=== PATIENT | female | born 1995 | race Two or more races ===

== ENCOUNTER 2016-10-24 13:49 | Emergency (ER) | payer MEDICAID, OTHER ==
[~2016-10-24] VITALS: Ht 160 cm; Wt 54.4 kg
[~2016-10-24 13:49] MED LIST: PREN-96 PO
[2016-10-24 13:57] VITALS: BP 140/90
[2016-10-24] MEDS ORDERED: KETOROLAC TROMETH 30 MG/ML 1ML VIAL IV ONE (14:00)
[2016-10-24] MEDS ORDERED: CARISOPRODOL 350 MG TAB PO ONE (14:15)
== END 2016-10-24 15:44 | disposition home or self-care (01) ==
LOC: EDBD 13:49 → ER 13:49
DX: S33.5XXA Sprain of ligaments of lumbar spine, initial encounter (principal); M54.10 Radiculopathy, site unspecified; X58.XXXA Exposure to other specified factors, initial encounter; Y93.89 Activity, other specified; Y92.89 Other specified places as the place of occurrence of the external cause; Y99.8 Other external cause status
CPT/HCPCS: 72131; 96374; 99284; J1885

== ENCOUNTER 2017-06-14 16:07 | Emergency (ER) | payer MEDICAID, OTHER ==
[~2017-06-14] VITALS: Ht 149.9 cm; Wt 56.7 kg
[2017-06-14 16:16] VITALS: BP 135/78
== END 2017-06-14 17:57 | disposition home or self-care (01) ==
LOC: ER 16:08
DX: R11.2 Nausea with vomiting, unspecified (principal)

== ENCOUNTER 2020-07-14 09:26 | Observation (INO) | payer MEDICAID | END 2020-07-14 12:28 | disposition home or self-care (01) | LOC: LDRP 09:26 | PROVIDERS: ADMIT Obstetrics & Gynecology; ATTEND Obstetrics & Gynecology | DX: O26.853 Spotting complicating pregnancy, third trimester (principal); O60.03 Preterm labor without delivery, third trimester; O62.9 Abnormality of forces of labor, unspecified; Z3A.32 32 weeks gestation of pregnancy | CPT/HCPCS: 59025; 76815; 81002; G0378 ==

== ENCOUNTER 2020-07-16 14:05 | Observation (INO) | payer MEDICAID ==
[~2020-07-16] VITALS: Ht 149.9 cm; Wt 76.2 kg
[2020-07-16] MEDS ORDERED: NIF10C GT ×2 (14:40)
== END 2020-07-16 15:16 | disposition home or self-care (01) ==
LOC: LDRP 14:05
PROVIDERS: ADMIT Specialist; ATTEND Specialist
DX: O60.03 Preterm labor without delivery, third trimester (principal); O62.9 Abnormality of forces of labor, unspecified; Z3A.33 33 weeks gestation of pregnancy
CPT/HCPCS: 59025; 81002; G0378

== ENCOUNTER 2020-07-21 09:01 | Observation (INO) | payer MEDICAID ==
[~2020-07-21] VITALS: Ht 149.9 cm; Wt 77.6 kg
[~2020-07-21 09:01] MED LIST changes: +NIF10C GT
[2020-07-21] MEDS ORDERED: TERBUTALINE SULFATE 1 MG/ML 1ML VIAL SC SCH (10:15)
== END 2020-07-21 11:18 | disposition home or self-care (01) ==
LOC: LDRP 09:01
PROVIDERS: ADMIT Obstetrics & Gynecology; ATTEND Obstetrics & Gynecology
DX: O60.03 Preterm labor without delivery, third trimester (principal); O62.9 Abnormality of forces of labor, unspecified; Z3A.33 33 weeks gestation of pregnancy
CPT/HCPCS: 59025; 81002; 96372; G0378; J3105

== ENCOUNTER 2020-07-28 08:55 | Observation (INO) | payer MEDICAID ==
[~2020-07-28] VITALS: Ht 149.9 cm; Wt 78.5 kg
== END 2020-07-28 10:46 | disposition home or self-care (01) ==
LOC: LDRP 08:55
PROVIDERS: ADMIT Obstetrics & Gynecology; ATTEND Obstetrics & Gynecology
DX: O60.03 Preterm labor without delivery, third trimester (principal); O62.9 Abnormality of forces of labor, unspecified; Z3A.34 34 weeks gestation of pregnancy
CPT/HCPCS: 59025; 76818; 81002; G0378

== ENCOUNTER 2020-08-02 18:47 | Observation (INO) | payer MEDICAID ==
[2020-08-02] MEDS ORDERED: BETAMETHASONE ACET (6MG/ML) 5ML VIAL IM ONE (19:45)
[2020-08-02] MEDS ORDERED: LACTATED RINGER'S 1,000 ML IV ONE (19:45)
[2020-08-02] MEDS ORDERED: LACTATED RINGER'S 1,000 ML IV SCH (19:45)
[2020-08-02] MEDS ORDERED: NIFEdipine 10 MG CAP PO ONE (20:00)
[2020-08-02] MEDS: TERBUTALINE SULFATE 1 MG/ML 1ML VIAL SC SCH ×2 (20:39→21:04)
== END 2020-08-02 23:55 | disposition home or self-care (01) ==
LOC: LDRP 18:47
PROVIDERS: ADMIT Obstetrics & Gynecology; ATTEND Obstetrics & Gynecology
DX: O62.9 Abnormality of forces of labor, unspecified (principal); Z3A.35 35 weeks gestation of pregnancy
CPT/HCPCS: 59025; 76818; 81002; 96360; 96361; 96372; G0378; J0702; J3105

== ENCOUNTER 2020-08-03 19:47 | Observation (INO) | payer MEDICAID ==
[2020-08-03] MEDS ORDERED: BETAMETHASONE ACET (6MG/ML) 5ML VIAL IM SCH (21:00)
[2020-08-04] MEDS ORDERED: BETAMETHASONE ACET (6MG/ML) 5ML VIAL IM SCH (10:00)
== END 2020-08-03 21:45 | disposition home or self-care (01) ==
LOC: LDRP 19:47
PROVIDERS: ADMIT Specialist; ATTEND Specialist
DX: O62.9 Abnormality of forces of labor, unspecified (principal); O99.353 Diseases of the nervous system complicating pregnancy, third trimester; G43.909 Migraine, unspecified, not intractable, without status migrainosus; Z3A.35 35 weeks gestation of pregnancy
CPT/HCPCS: 59025; 81002; 96372; G0378; J0702

== ENCOUNTER 2020-08-08 22:53 | Observation (INO) | payer MEDICAID ==
[2020-08-09] MEDS ORDERED: NIFEdipine 10 MG CAP PO ONE (00:15)
== END 2020-08-09 00:25 | disposition home or self-care (01) ==
LOC: LDRP 22:53
PROVIDERS: ADMIT Obstetrics & Gynecology; ATTEND Obstetrics & Gynecology
DX: O62.9 Abnormality of forces of labor, unspecified (principal); O26.893 Other specified pregnancy related conditions, third trimester; R19.7 Diarrhea, unspecified; Z3A.36 36 weeks gestation of pregnancy; Z79.899 Other long term (current) drug therapy
CPT/HCPCS: 59025; 81002; G0378

== ENCOUNTER 2020-08-11 09:15 | Observation (INO) | payer MEDICAID ==
[~2020-08-11] VITALS: Ht 152.4 cm; Wt 79.4 kg
[2020-08-11] MEDS ORDERED: LACTATED RINGER'S 1,000 ML IV ONE (10:35)
[2020-08-11] MEDS ORDERED: NIFEdipine 10 MG CAP PO ONE (11:00)
== END 2020-08-11 12:15 | disposition home or self-care (01) ==
LOC: LDRP 09:15
PROVIDERS: ADMIT Specialist; ATTEND Specialist
DX: O60.03 Preterm labor without delivery, third trimester (principal); Z3A.36 36 weeks gestation of pregnancy
CPT/HCPCS: 59025; 76818; 81002; 96360; G0378

== ENCOUNTER 2020-08-27 09:00 | Observation (INO) | payer MEDICAID ==
[~2020-08-27 09:00] MED LIST changes: -NIF10C GT
== END 2020-08-27 12:03 | disposition home or self-care (01) ==
LOC: LDRP 09:00
PROVIDERS: ADMIT Specialist; ATTEND Specialist
DX: O62.9 Abnormality of forces of labor, unspecified (principal); Z3A.39 39 weeks gestation of pregnancy
CPT/HCPCS: 59025; 81002; G0378

== ENCOUNTER → 2021-09-26 | Outpatient (CLI) | payer MEDICAID | END | disposition home or self-care (01) | LOC: LAB 13:39 | PROVIDERS: ATTEND Obstetrics & Gynecology Obstetrics | DX: Z34.80 Encounter for supervision of other normal pregnancy, unspecified trimester (principal) | CPT/HCPCS: 36415; 84144; 84702 ==

== ENCOUNTER 2022-01-20 09:47 | Observation (INO) | payer MEDICAID ==
[2022-01-20] MEDS ORDERED: TERBUTALINE SULFATE 1 MG/ML 1ML VIAL SC SCH (11:00)
[2022-01-20] MEDS ORDERED: LACTATED RINGER'S 1,000 ML IV ONE (11:30)
== END 2022-01-20 11:46 | disposition home or self-care (01) ==
LOC: LDRP 09:47 → UNDOADMOB 09:47 → LDRP 11:02 → UNDODISOB 11:46
PROVIDERS: ADMIT Obstetrics & Gynecology; ATTEND Obstetrics & Gynecology
DX: O60.02 Preterm labor without delivery, second trimester (principal); Z3A.25 25 weeks gestation of pregnancy
CPT/HCPCS: 59025; 76805; 81002; 96360; 96361; G0378

== ENCOUNTER 2022-02-24 10:58 | Observation (INO) | payer MEDICAID ==
[~2022-02-24] VITALS: Ht 147.3 cm; Wt 68.9 kg
[2022-02-24] MEDS: TERBUTALINE SULFATE 1 MG/ML 1ML VIAL SC SCH ×2 (12:10→12:54)
== END 2022-02-24 13:31 | disposition home or self-care (01) ==
LOC: UNDOADMOB 10:58 → LDRP 10:58
PROVIDERS: ADMIT Obstetrics & Gynecology; ATTEND Obstetrics & Gynecology
DX: O60.03 Preterm labor without delivery, third trimester (principal); O62.9 Abnormality of forces of labor, unspecified; O26.893 Other specified pregnancy related conditions, third trimester; H53.8 Other visual disturbances; Z3A.30 30 weeks gestation of pregnancy
CPT/HCPCS: 59025; 76815; 81002; 94760; 96372; G0378; J3105

== ENCOUNTER 2022-04-11 12:59 | Observation (INO) | payer MEDICAID | END 2022-04-11 15:44 | disposition home or self-care (01) | LOC: UNDOADMOB 12:59 → LDRP 12:59 | PROVIDERS: ADMIT Obstetrics & Gynecology; ATTEND Obstetrics & Gynecology | DX: O60.03 Preterm labor without delivery, third trimester (principal); O62.9 Abnormality of forces of labor, unspecified; Z3A.37 37 weeks gestation of pregnancy | CPT/HCPCS: 59025; 76818; 81002; 84112; G0378; Q0114 ==

== ENCOUNTER 2022-04-18 03:52 | Observation (INO) | payer MEDICAID ==
[~2022-04-18] VITALS: Ht 149.9 cm; Wt 74.4 kg
== END 2022-04-18 04:46 | disposition home or self-care (01) ==
LOC: LDRP 03:52
PROVIDERS: ADMIT Obstetrics & Gynecology; ATTEND Obstetrics & Gynecology
DX: O62.9 Abnormality of forces of labor, unspecified (principal); Z3A.38 38 weeks gestation of pregnancy
CPT/HCPCS: 59025; 81002; 94760; G0378

== ENCOUNTER 2022-04-24 16:22 | Inpatient (IN) | payer MEDICAID ==
[~2022-04-24] VITALS: Ht 149.9 cm; Wt 75.3 kg
[2022-04-24] MEDS ORDERED: LIDOCAINE 2%HCL (LOCAL ANESTH.) INJ 20ML MDV IJ PRN (17:15)
[2022-04-24] MEDS ORDERED: BUTORPHANOL TARTRATE 2 MG/1 ML VIAL IV PRN ×2 (17:15)
[2022-04-24] MEDS ORDERED: PHISODERM TOP SOLN 240ML BTL TOP PRN (17:15)
[2022-04-24] MEDS ORDERED: PROMETHAZINE HCL 25 MG/ML 1ML IV PRN (17:15)
[2022-04-24] MEDS ORDERED: WITCH HAZEL-GLYCERIN PAD TOP PRN (17:15)
[2022-04-24] MEDS ORDERED: LACTATED RINGER'S 1,000 ML IV SCH (17:15)
[2022-04-24] MEDS ORDERED: DERMOPLAST 60ML BOTTLE TOP PRN (17:15)
[2022-04-24] MEDS ORDERED: ACETAMINOPHEN 500 MG TAB PO ONE (18:15)
[2022-04-24 18:37] LABS: Basophils # (auto) 0 10 ^3/uL (0-0.2); Basophils % (auto) 0.2 % (0.0-2.0); Eosinophils # (auto) 0 10 ^3/uL (0-0.8); Eosinophils % (auto) 0.4 % (0.0-7.0); Hematocrit 38.9 % (36.0-46.0); Hemoglobin 13.1 g/dL (12.2-16.2); Lymphocytes # (auto) 1.5 10 ^3/uL (0.4-5.4); Lymphocytes % (auto) 20.1 % (10.0-50.0); Mean Corpuscular Hemoglobin 30.4 pg (28.0-32.0); Mean Corpuscular Hgb Conc. 33.8 g/dL (32.0-36.0); Mean Corpuscular Volume 90.1 fL (80.0-100.0); Monocytes # (auto) 0.6 10 ^3/uL (0-1.3); Monocytes % (auto) 7.6 % (0.0-12.0); Neutrophils # (auto) 5.2 10 ^3/uL (1.6-8.6); Neutrophils % (auto) 71.7 % (37.0-80.0); Nucleated Red Blood Cells % 0.2 %; Red Blood Cells 4.32 10^6/uL (4.0-5.20); Red Cell Distribution Width 14.4 % (11.8-14.3); White Blood Cell 7.2 10^3/uL (4.4-10.8)
[2022-04-24 18:39] LABS: Urine Bacteria NONE SEEN /hpf (None Seen); Urine Blood Negative /uL (Negative); Urine Mucus FEW (None Seen); Urine Specific Gravity 1.022 (1.001-1.035); Urine WBC 48 /hpf (0 - 5)
[2022-04-24 18:54] LABS: Albumin 2.7 g/dL (3.4-5.0); Calcium 8.4 mg/dL (8.5-10.1); INR 0.87 (0.9-1.15); Partial Thromboplastin Time 28.4 sec (24.6-33.4); Potassium 3.8 mmol/L (3.5-5.1); Uric Acid 4.8 mg/dL (2.6-6.0)
[2022-04-24 18:57] LABS: Alcohol, Urine < 3.0 mg/dL (0-10); Amphetamine Screen, Urine NEGATIVE (NEGATIVE); Barbiturate Scree,Urine NEGATIVE (NEGATIVE); Benzodiazephine Screen, Urine NEGATIVE (NEGATIVE); Cannabinoid Screen, Urine NEGATIVE (NEGATIVE); Cocaine Screen, Urine NEGATIVE (NEGATIVE); Creatinine, Urine 257 mg/dL (30.0-125.0); Opiate Scree,Urine NEGATIVE (NEGATIVE); Phencyclidine Screen, Urine NEGATIVE (NEGATIVE); Protein, Urine 32.3 mg/dL (0.0-11.9)
[2022-04-24 18:57] LABS: BUN/Creatinine Ratio 17.3; Bilirubin, Total 0.2 mg/dL (0.2-1.0); Total Protein 6.7 g/dL (6.4-8.2)
[2022-04-24] MEDS ORDERED: LACT. RINGERS/OXYTOCIN 20UNITS 1,000 ML IV SCH (19:15)
[2022-04-24] MEDS ORDERED: LIDOCAINE HCL 2 %PF INJ 10ML AMP IJ ONE (19:15)
[2022-04-24] MEDS ORDERED: LACTATED RINGER'S 1,000 ML IV ONE (19:15)
[2022-04-24] MEDS ORDERED: ROPIVACAINE HCL 200 ML EPI SCH (19:15)
[2022-04-24] MEDS ORDERED: fentaNYL CITRATE 100 MCG/2 ML VL IV ONE (19:15)
[2022-04-24] MEDS ORDERED: NALOXONE HCL 0.4 MG/ML VIAL IV ONE (19:15)
[2022-04-24] MEDS ORDERED: ePHEDrine SULFATE 50 MG/ML AMP IV ONE (19:15)
[2022-04-24] MEDS ORDERED: DIPHENOXYLATE W/ATROPINE 2.5 MG TAB PO PRN (21:00)
[2022-04-24] MEDS ORDERED: CARBOPROST TROMETHAMINE 250 MCG/1ML VIAL IM ONE (21:00)
[2022-04-24] MEDS ORDERED: LACT. RINGERS/OXYTOCIN 20UNITS 500 ML IV ONE ×2 (21:00→21:30)
[2022-04-24] MEDS ORDERED: METHYLERGONOVINE MALEATE 0.2 MG/ML AMP IM ONE (21:00)
[2022-04-25] MEDS ORDERED: miSOPROStol 100 mcg TAB SL PRN (01:45)
[2022-04-25 07:00] VITALS: BP 105/73
[2022-04-25] MEDS: IBUPROFEN 800 MG TAB PO PRN ×3 (07:39→23:26)
[2022-04-25 11:09] VITALS: BP 102/44
[2022-04-25] MEDS: ACETAMINOPHEN 325 MG TAB PO PRN ×2 (11:17→23:27)
[2022-04-25 14:46] VITALS: BP 107/56
[2022-04-25 19:30] VITALS: BP 107/63
[2022-04-25] MEDS ORDERED: DOCUSATE SOD 100 MG CAP PO SCH (22:00)
[2022-04-25 23:30] VITALS: BP 97/55
[2022-04-26 03:00] VITALS: BP 113/62
[2022-04-26] MEDS: IBUPROFEN 800 MG TAB PO PRN (06:58)
[2022-04-26 07:06] LABS: RPR Non Reactive (Non Reactive)
[2022-04-26 07:19] VITALS: BP 121/66
== END 2022-04-26 09:09 | disposition home or self-care (01) | DRG 560 ==
LOC: LDRP 16:22 → OBSVTOIN 17:00 → LDRP 19:09
PROVIDERS: ADMIT Obstetrics & Gynecology; ATTEND Obstetrics & Gynecology
PROC: 10E0XZZ Delivery of Products of Conception, External Approach (ICD-10-PCS; principal; 2022-04-25)
DX: O69.81X0 Labor and delivery complicated by cord around neck, without compression, not applicable or unspecified (principal); Z37.0 Single live birth; O99.345 Other mental disorders complicating the puerperium; F53.0 Postpartum depression; Z20.822 Contact with and (suspected) exposure to COVID-19; Z81.8 Family history of other mental and behavioral disorders; Z3A.38 38 weeks gestation of pregnancy
CPT/HCPCS: 36415; 59025; 59409; 62282; 76818; 80053; 80307; 81001; 81002; 82570; 84156; 84550; 85025; 85610; 85730; 86592; 86850; 86900; 86901; 87426; 94760; 94762; 96360; 96361; 96372; G0378; J2590

== ENCOUNTER → 2022-07-12 | Outpatient (CLI) | payer MEDICAID ==
[2022-07-12 11:19] LABS: Basophils # (auto) 0 10 ^3/uL (0-0.2); Basophils % (auto) 0.3 % (0.0-2.0); Eosinophils # (auto) 0 10 ^3/uL (0-0.8); Eosinophils % (auto) 0.6 % (0.0-7.0); Hematocrit 40.7 % (36.0-46.0); Lymphocytes # (auto) 1.9 10 ^3/uL (0.4-5.4); Lymphocytes % (auto) 31.7 % (10.0-50.0); Mean Corpuscular Hemoglobin 29.9 pg (28.0-32.0); Mean Corpuscular Hgb Conc. 34.5 g/dL (32.0-36.0); Mean Corpuscular Volume 86.8 fL (80.0-100.0); Monocytes # (auto) 0.4 10 ^3/uL (0-1.3); Monocytes % (auto) 6.4 % (0.0-12.0); Neutrophils # (auto) 3.7 10 ^3/uL (1.6-8.6); Nucleated Red Blood Cells % 0.1 %; Red Blood Cells 4.69 10^6/uL (4.0-5.20); Red Cell Distribution Width 13.4 % (11.8-14.3)
[2022-07-12 11:45] LABS: INR 0.93 (0.9-1.15); Partial Thromboplastin Time 30.2 sec (24.6-33.4)
[2022-07-12 17:04] LABS: % Iron Saturation 24.7 % (15-50)
== END | disposition home or self-care (01) ==
LOC: LAB 10:13
PROVIDERS: ATTEND Obstetrics & Gynecology
DX: Z34.80 Encounter for supervision of other normal pregnancy, unspecified trimester (principal); Z3A.00 Weeks of gestation of pregnancy not specified
CPT/HCPCS: 36415; 81025; 82728; 83021; 83540; 83550; 84702; 85025; 85384; 85610; 85660; 85730